=== PATIENT | female | born 1985 | race Caucasian/White ===

== ENCOUNTER 2018-08-23 18:16 | Emergency (ER) | payer OTHER ==
[~2018-08-23] VITALS: Ht 175.3 cm; Wt 99.0 kg
[2018-08-23 18:38] VITALS: BP 189/117
== END 2018-08-23 23:30 | disposition left against medical advice (07) ==
LOC: ER 18:16
DX: R07.9 Chest pain, unspecified (principal); Z53.21 Procedure and treatment not carried out due to patient leaving prior to being seen by health care provider